=== PATIENT | male | born 1935 | race Hispanic/Latino ===

== ENCOUNTER 2021-03-21 10:28 | Inpatient (IN) | payer MEDICARE ==
[2021-03-21] MEDS ORDERED: SODIUM CHLORIDE 0.9% 1000 ML 1,000 ML IV ONE (11:23)
[2021-03-21] MEDS ORDERED: LORazepam 2 MG/ML VIAL IV ONE (11:23)
--- NOTE | 2021-03-21 11:27 | Emergency Department Report ---
HPI - General Time Seen by Provider: 03/21/21 11:17 - HPI HPI: This is an 86-year-old male who presents to the emergency department via EMS from home with complaint of altered mental status. Patient's called for EMS and told EMS that he has been having progressively worsening confusion over the past few days. Patient is currently AAO x1 to person, but not place or time. The patient is confused and pulling off his monitoring leads and attempting to pull out his IV. He is a poor historian secondary to his current condition. He has a past medical history of hypertension and diabetes. He was not given anything for his symptoms prior to presentation. Apparently the patient had slightly decreased oxygen with EMS at 93% and was placed on 2 L oxygen via nasal cannula. ED Past Medical Hx - Past Medical History Hx Hypertension: Yes Hx Diabetes: Yes Additional medical history: Coronary artery disease - Surgical History Hx Coronary Stent: Yes (approximately 2013) Hx Open Heart Surgery: Yes (CABG 2007) - Social History Smoking Status: Never Smoker - Medications Home Medications: Home Medications Medication Instructions Recorded Confirmed Last Taken Type Clopidogrel [Plavix] 75 mg PO QDAY 06/13/16 06/13/16 Unknown History Glimepiride [Amaryl] 1 mg PO QDAY 06/13/16 06/13/16 Unknown History amLODIPine 5 mg PO QDAY 06/13/16 06/13/16 Unknown History lisinopriL [Zestril TAB] 40 mg PO QDAY 06/13/16 06/13/16 Unknown History metFORMIN [Glucophage] 500 mg PO BID 06/13/16 06/13/16 Unknown History Aspirin EC [Halfprin EC] 81 mg PO QDAY #30 tablet. 06/14/16 Unknown Rx Atorvastatin Calcium [Lipitor] 20 mg PO QHS #30 tab 06/14/16 Unknown Rx Insulin Glargine [Lantus VIAL] 20 units SUB-Q QHS units 06/14/16 Unknown Rx carvediloL [Coreg] 3.125 mg PO BID #60 tablet 06/14/16 Unknown Rx ED Review of Systems ROS: Stated complaint: ALTERED MENTAL STATUS Other details as noted in HPI Comment: Unobtainable due to pts medical conditions Physical Exam - Physical Exam Physical Exam: GENERAL: The patient is ill-appearing and confused. HENT: Normocephalic. Atraumatic. Patient has moist mucous membranes. EYES: Extraocular motions are intact. NECK: Supple. Trachea is midline. CHEST/LUNGS: Clear to auscultation. There is no respiratory distress noted. HEART/CARDIOVASCULAR: Regular. There is no tachycardia. There is no murmur. ABDOMEN: Abdomen is soft, nontender. Patient has normal bowel sounds. There is no abdominal distention. SKIN: Skin is warm and dry. NEURO: The patient is awake but confused. AAO x1 to name only. Not following commands. Not redirectable. MUSCULOSKELETAL: There is no tenderness or deformity. ED Medical Decision Making - Lab Data Result diagrams: 03/21/21 13:33 03/21/21 13:33 Lab Results 03/21/21 03/21/21 03/21/21 Range/Units 13:33 13:33 13:33 WBC 7.5 (4.5-11.0) K/mm3 RBC 4.19 (3.65-5.03) M/mm3 Hgb 14.3 (11.8-15.2) gm/dl Hct 41.2 (35.5-45.6) % MCV 98 H (84-94) fl MCH 34 H (28-32) pg MCHC 35 H (32-34) % RDW 13.1 L (13.2-15.2) % Plt Count 210 (140-440) K/mm3 Lymph % (Auto) 15.8 (13.4-35.0) % [place] % (Auto) 10.9 H (0.0-7.3) % Eos % (Auto) 0.4 (0.0-4.3) % Baso % (Auto) 0.2 (0.0-1.8) % Lymph # (Auto) 1.2 (1.2-5.4) K/mm3 [place] # (Auto) 0.8 (0.0-0.8) K/mm3 Eos # (Auto) 0.0 (0.0-0.4) K/mm3 Baso # (Auto) 0.0 (0.0-0.1) K/mm3 Seg Neutrophils % 72.7 H (40.0-70.0) % Seg Neutrophils # 5.5 (1.8-7.7) K/mm3 Sodium 139 (137-145) mmol/L Potassium 3.7 (3.6-5.0) mmol/L Chloride 106.1 (98-107) mmol/L Carbon Dioxide 24 (22-30) mmol/L Anion Gap 13 mmol/L BUN 18 (9-20) mg/dL Creatinine 0.8 (0.8-1.3) mg/dL Estimated GFR > 60 ml/min BUN/Creatinine Ratio 23 % Glucose 197 H (75-100) mg/dL Lactic Acid 1.50 (0.7-2.0) mmol/L Calcium 8.2 L (8.4-10.2) mg/dL Total Bilirubin 0.40 (0.1-1.2) mg/dL AST 15 (5-40) units/L ALT 18 (7-56) units/L Alkaline Phosphatase 63 (35-129) units/L Ammonia (25-60) umol/L Total Creatine Kinase 73 (55-170) units/L Troponin T < 0.010 (0.00-0.029) ng/mL Total Protein 6.0 L (6.3-8.2) g/dL Albumin 3.8 L (3.9-5) g/dL Albumin/Globulin Ratio 1.7 % TSH (0.270-4.200) mlU/mL Urine Color (Yellow) Urine Turbidity (Clear) Urine pH (5.0-7.0) Ur Specific Alpha (1.003-1.030) Urine Protein (Negative) mg/dL Urine Glucose (UA) (Negative) mg/dL Urine Ketones (Negative) mg/dL Urine Blood (Negative) Urine Nitrite (Negative) Urine Bilirubin (Negative) Urine Urobilinogen (<2.0) mg/dL Ur Leukocyte Esterase (Negative) Urine WBC (Auto) (0.0-6.0) /HPF Urine RBC (Auto) (0.0-6.0) /HPF U Epithel Cells (Auto) (0-13.0) /HPF Plasma/Serum Alcohol (0-0.07) % 03/21/21 03/21/21 03/21/21 Range/Units 13:33 13:33 13:33 WBC (4.5-11.0) K/mm3 RBC (3.65-5.03) M/mm3 Hgb (11.8-15.2) gm/dl Hct (35.5-45.6) % MCV (84-94) fl MCH (28-32) pg MCHC (32-34) % RDW (13.2-15.2) % Plt Count (140-440) K/mm3 Lymph % (Auto) (13.4-35.0) % [place] % (Auto) (0.0-7.3) % Eos % (Auto) (0.0-4.3) % Baso % (Auto) (0.0-1.8) % Lymph # (Auto) (1.2-5.4) K/mm3 [place] # (Auto) (0.0-0.8) K/mm3 Eos # (Auto) (0.0-0.4) K/mm3 Baso # (Auto) (0.0-0.1) K/mm3 Seg Neutrophils % (40.0-70.0) % Seg Neutrophils # (1.8-7.7) K/mm3 Sodium (137-145) mmol/L Potassium (3.6-5.0) mmol/L Chloride (98-107) mmol/L Carbon Dioxide (22-30) mmol/L Anion Gap mmol/L BUN (9-20) mg/dL Creatinine (0.8-1.3) mg/dL Estimated GFR ml/min BUN/Creatinine Ratio % Glucose (75-100) mg/dL Lactic Acid (0.7-2.0) mmol/L Calcium (8.4-10.2) mg/dL Total Bilirubin (0.1-1.2) mg/dL AST (5-40) units/L ALT (7-56) units/L Alkaline Phosphatase (35-129) units/L Ammonia 33.0 (25-60) umol/L Total Creatine Kinase (55-170) units/L Troponin T (0.00-0.029) ng/mL Total Protein (6.3-8.2) g/dL Albumin (3.9-5) g/dL Albumin/Globulin Ratio % TSH 2.140 (0.270-4.200) mlU/mL Urine Color (Yellow) Urine Turbidity (Clear) Urine pH (5.0-7.0) Ur Specific Alpha (1.003-1.030) Urine Protein (Negative) mg/dL Urine Glucose (UA) (Negative) mg/dL Urine Ketones (Negative) mg/dL Urine Blood (Negative) Urine Nitrite (Negative) Urine Bilirubin (Negative) Urine Urobilinogen (<2.0) mg/dL Ur Leukocyte Esterase (Negative) Urine WBC (Auto) (0.0-6.0) /HPF Urine RBC (Auto) (0.0-6.0) /HPF U Epithel Cells (Auto) (0-13.0) /HPF Plasma/Serum Alcohol < 0.01 (0-0.07) % 03/21/21 Range/Units 13:51 WBC (4.5-11.0) K/mm3 RBC (3.65-5.03) M/mm3 Hgb (11.8-15.2) gm/dl Hct (35.5-45.6) % MCV (84-94) fl MCH (28-32) pg MCHC (32-34) % RDW (13.2-15.2) % Plt Count (140-440) K/mm3 Lymph % (Auto) (13.4-35.0) % [place] % (Auto) (0.0-7.3) % Eos % (Auto) (0.0-4.3) % Baso % (Auto) (0.0-1.8) % Lymph # (Auto) (1.2-5.4) K/mm3 [place] # (Auto) (0.0-0.8) K/mm3 Eos # (Auto) (0.0-0.4) K/mm3 Baso # (Auto) (0.0-0.1) K/mm3 Seg Neutrophils % (40.0-70.0) % Seg Neutrophils # (1.8-7.7) K/mm3 Sodium (137-145) mmol/L Potassium (3.6-5.0) mmol/L Chloride (98-107) mmol/L Carbon Dioxide (22-30) mmol/L Anion Gap mmol/L BUN (9-20) mg/dL Creatinine (0.8-1.3) mg/dL Estimated GFR ml/min BUN/Creatinine Ratio % Glucose (75-100) mg/dL Lactic Acid (0.7-2.0) mmol/L Calcium (8.4-10.2) mg/dL Total Bilirubin (0.1-1.2) mg/dL AST (5-40) units/L ALT (7-56) units/L Alkaline Phosphatase (35-129) units/L Ammonia (25-60) umol/L Total Creatine Kinase (55-170) units/L Troponin T (0.00-0.029) ng/mL Total Protein (6.3-8.2) g/dL Albumin (3.9-5) g/dL Albumin/Globulin Ratio % TSH (0.270-4.200) mlU/mL Urine Color Straw (Yellow) Urine Turbidity Clear (Clear) Urine pH 7.0 (5.0-7.0) Ur Specific Alpha 1.011 (1.003-1.030) Urine Protein <15 mg/dl (Negative) mg/dL Urine Glucose (UA) >=500 (Negative) mg/dL Urine Ketones Neg (Negative) mg/dL Urine Blood Neg (Negative) Urine Nitrite Neg (Negative) Urine Bilirubin Neg (Negative) Urine Urobilinogen < 2.0 (<2.0) mg/dL Ur Leukocyte Esterase Neg (Negative) Urine WBC (Auto) 1.0 (0.0-6.0) /HPF Urine RBC (Auto) 2.0 (0.0-6.0) /HPF U Epithel Cells (Auto) < 1.0 (0-13.0) /HPF Plasma/Serum Alcohol (0-0.07) % - Radiology Data Radiology results: report reviewed CT HEAD WITHOUT CONTRAST INDICATION / CLINICAL INFORMATION: Altered mental status. TECHNIQUE: All CT scans at this location are performed using CT dose reduction for ALARA by means of automated exposure control. COMPARISON: None available. FINDINGS: HEMORRHAGE: No evidence of intracranial hemorrhage or extra-axial fluid collection. EXTRA-AXIAL SPACES: Cortical sulci and sylvian fissures are enlarged reflecting a degree of parenchymal volume loss which is pr ominent even given the patient's age 88 years. Basilar cisterns have an unremarkable appearance. VENTRICULAR SYSTEM: The third and lateral ventricles are enlarged out of proportion to the cortical sulci. This probably reflects the presence of central greater than cortical atrophy. CEREBRAL PARENCHYMA: Periventricular and deep white matter lucency is observed. This is probably secondary to microvascular ischemic change. There is no indication of recent infarction. No areas of encephalomalacia are identified. MIDLINE SHIFT OR HERNIATION: There is no mass effect. CEREBELLUM / BRAINSTEM: Brainstem and cerebellum have an unremarkable appearance. MIDLINE STRUCTURES:No abnormalities of the pituitary gland or pineal region are observed INTRACRANIAL VESSELS:Calcified atherosclerotic plaque is present along the course of the cavernous segments of both internal carotid arteries. Similar findings are seen at the distal vertebral arteries. ORBITS: Status post bilateral cataract surgery. No additional abnormality. SOFT TISSUES of HEAD: No significant abnormality. CALVARIUM: Evaluation of bone windows reveals no abnormalities. PARANASAL SINUSES / MASTOID AIR CELLS: Paranasal sinuses are free from inflammatory mucosal disease. Mastoid air cells are normally pneumatized. ADDITIONAL FINDINGS: None. IMPRESSION: 1. Moderate central greater than cortical atrophy. Moderate microvascular ischemic change. 2. No acute intracranial abnormality. - Medical Decision Making This patient presents to the emergency department for evaluation of altered mental status. Apparently the patient has had some cognitive decline over the past few days and was sent in by his for evaluation. No previous diagnosis of dementia. CT scan head does not show any hemorrhage, large vessel occlusion, hydrocephalus, or any other acute process. There is significant atrophy. The patient's labs have been mostly unremarkable including CBC, metabolic panel, urinalysis, ammonia level, normal thyroid function, and does not show any etiology of the patient's altered mental status. Patient's vital signs have been reassuring throughout his ED course thus far. He will be admitted to the hospital for further evaluation and treatment and has been accepted for admission by the hospitalist, Dr. Polk. Critical Care Time: No Critical care attestation.: If time is entered above; I have spent that time in minutes in the direct care of this critically ill patient, excluding procedure time. ED Disposition Clinical Impression: Altered mental status, Encephalopathy Hypertension Qualifiers: Hypertension type: essential hypertension Qualified Code(s): I10 - Essential (primary) hypertension Disposition: OP ADMIT IP TO THIS HOSP Is pt being admited?: Yes Condition: Serious Time of Disposition: 18:38
[2021-03-21 14:09] LABS: Basophils % (Auto) 0.2 % (0.0-1.8); Eosinophils % (Auto) 0.4 % (0.0-4.3); Hematocrit 41.2 % (35.5-45.6); Hemoglobin 14.3 gm/dl (11.8-15.2); Lymphocytes # (Auto) 1.2 K/mm3 (1.2-5.4); Lymphocytes % (Auto) 15.8 % (13.4-35.0); Mean Corpuscular HGB Conc 35 % (32-34); Mean Corpuscular Volume 98 fl (84-94); Monocytes # (Auto) 0.8 K/mm3 (0.0-0.8); Monocytes % (Auto) 10.9 % (0.0-7.3); Platelet Count 210 K/mm3 (140-440); Red Blood Count 4.19 M/mm3 (3.65-5.03); Red Cell Distribution Width 13.1 % (13.2-15.2)
[2021-03-21 14:37] LABS: Alanine Aminotransferase 18 units/L (7-56); Albumin 3.8 g/dL (3.9-5); BUN/Creatinine Ratio 23; Blood Urea Nitrogen 18 mg/dL (9-20); Calcium 8.2 mg/dL (8.4-10.2); Hemolysis Index 12
[2021-03-21 14:48] LABS: Bilirubin,Urine NEG (Negative); Blood,Urine NEG (Negative); Color,Urine Straw (Yellow); Protein,Urine <15 mg/dL mg/dL (Negative); Urobilinogen,Urine < 2.0 mg/dL (<2.0)
--- NOTE | 2021-03-21 15:18 | History and Physical Report ---
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 Patient has diminished cognition and is unable to provide detailed history. Patient history taken from EMS staff, ED staff, as well as patient who was made available with telephone for interview. Patient reports "he cannot do anything for himself anymore". Patient states that the patient has experienced increased confusion, diminished oral intake, as well as increased difficulty recognizing family me mbers over the past 3 weeks with worsening symptoms over the same timeframe. Patient is currently bedbound, nonambulatory and requires 6/6 assistance with activities of daily living. Patient has palliative performance score 30%. EMS notified and upon arrival the patient was found to be in distress and subsequently transported to [facility] for further care and evaluation of the aforementioned symptoms. The patient was seen and evaluated in the emergency department. All lab and imaging studies reviewed. Patient found to have volume depletion, metabolic encephalopathy, debility. Patient placed in observation status and admitted to medical floor due to increased risk of worsening symptoms. Patient treated with IV fluid resuscitation therapy. Patient has diminished cognition but has a positive gag reflex and is able to protect his airway without difficulty. Advanced care planning conducted in ED. No reports of fever, chills, chest pain, palpitation productive cough, skin rash, recent c ontact, or known exposure to COVID-19. No prior admission for review. All medication listed at the time of the patient's admission has been reconciled. Past History Past Medical History: CAD, diabetes, hypertension, hyperlipidemia Past Surgical History: CABG Social history: , lives with family. denies: smoking, alcohol abuse, prescription drug abuse Family history: diabetes, hypertension Medications and Allergies Allergies Allergy/AdvReac Type Severity Reaction Status Date / Time No Known Allergies Allergy Verified 06/13/16 02:18 Home Medications Medication Instructions Recorded Confirmed Last Taken Type Clopidogrel [Plavix] 75 mg PO QDAY 06/13/16 06/13/16 Unknown History Glimepiride [Amaryl] 1 mg PO QDAY 06/13/16 06/13/16 Unknown History lisinopriL [Zestril TAB] 40 mg PO QDAY 06/13/16 06/13/16 Unknown History metFORMIN [Glucophage] 500 mg PO BID 06/13/16 06/13/16 Unknown History Aspirin EC [Halfprin EC] 81 mg PO QDAY #30 tablet. 06/14/16 Unknown Rx Atorvastatin Calcium [Lipitor] 20 mg PO QHS #30 tab 06/14/16 Unknown Rx Insulin Glargine [Lantus VIAL] 20 units SUB-Q QHS units 06/14/16 Unknown Rx Active Meds: Active Medications Sodium Chloride (Nacl 0.9% 1000 Ml) 1,000 mls @ 125 mls/hr IV ONCE ONE Stop: 03/21/21 19:22 Last Admin: 03/21/21 12:00 Dose: 125 mls/hr Documented by: Review of Systems ROS unobtainable: due to mental status Exam - Constitutional Vitals: Temp Pulse Resp BP Pulse Ox 98.5 F 72 19 139/79 96 03/21/21 11:06 03/21/21 14:30 03/21/21 14:30 03/21/21 14:30 03/21/21 14:30 General appearance: Present: mild distress - EENT Eyes: Present: PERRL ENT: hearing intact, clear oral mucosa, other (Oral mucosa dry) - Neck Neck: Present: supple, normal ROM - Respiratory Respiratory effort: normal Respiratory: bilateral: CTA - Cardiovascular Heart Sounds: Present: S1 & S2. Absent: rub, click - Extremities Extremities: pulses symmetrical, No edema Peripheral Pulses: within normal limits - Abdominal General gastrointestinal: Present: soft, non-tender, non-distended, normal bowel sounds Male genitourinary: Present: normal - Integumentary Integumentary: Present: clear, warm, dry - Musculoskeletal Musculoskeletal: gait normal, strength equal bilaterally - Psychiatric Psychiatric: no appropriate mood/affect, no intact judgment & insight, no memory intact - Neurologic Neurologic: CNII-XII intact, no focal deficits, moves all extremities, no gait normal HEART Score - HEART Score Troponin: Troponin T < 0.010 ng/mL (0.00-0.029) 03/21/21 13:33 Results - Labs CBC & Chem 7: 03/28/21 05:59 03/29/21 07:07 Labs: Abnormal lab results 03/21/21 03/21/21 Range/Units 13:33 13:33 MCV 98 H (84-94) fl MCH 34 H (28-32) pg MCHC 35 H (32-34) % RDW 13.1 L (13.2-15.2) % [place] % (Auto) 10.9 H (0.0-7.3) % Seg Neutrophils % 72.7 H (40.0-70.0) % Glucose 197 H (75-100) mg/dL Calcium 8.2 L (8.4-10.2) mg/dL Total Protein 6.0 L (6.3-8.2) g/dL Albumin 3.8 L (3.9-5) g/dL Assessment and Plan - Patient Problems (1) Volume depletion Status: Acute Plan to address problem: IV fluid resuscitation therapy, monitor urine output every shift, (2) Metabolic encephalopathy Status: Acute Plan to address problem: CT head, neuro check, seizure precautions, fall precautions. (3) Hypertension Status: Acute Qualifiers: Hypertension type: essential hypertension Plan to address problem: Monitor blood pressure every shift. Patient has relative hypotension. Goal systolic blood pressure around 150 overnight. (4) Diabetes Status: Acute Plan to address problem: Consistent carbohydrate diet, sliding scale insulin therapy, Accu-Chek, hypoglycemia protocol. (5) Vascular dementia Status: Acute Qualifiers: Dementia behavioral disturbance: without behavioral disturbance Qualified Code(s): F01.50 - Vascular dementia without behavioral disturbance Plan to address problem: Verbal prompting, verbal redirection, benzodiazepine therapy as clinical indicated (6) Cerebral atherosclerosis Status: Acute Plan to address problem: Antiplatelet therapy, supportive care, risk factor reduction. (7) DVT prophylaxis Status: Acute Plan to address problem: SCDs bilateral lower extremities while in bed, (8) Advance care planning Status: Acute Plan to address problem: Disease education conducted, diagnosis discussed, prognosis discussed, patient is full code, patient knowledges understanding and agreement with care plan, +30 minutes. Carolina Hernandez .
[2021-03-21] MEDS ORDERED: ACETAMINOPHEN 325 MG TAB PO PRN (15:38)
[2021-03-21] MEDS ORDERED: ALBUTEROL 2.5 MG/3 ML NEBU IH PRN (15:38)
[2021-03-21] MEDS ORDERED: DEXTROSE 50% IN WATER (25GM) 50 ML SYRINGE IV PRN (15:45)
[2021-03-21] MEDS: SODIUM CHLORIDE 0.9% 1000 ML 1,000 ML IV SCH (20:49)
[2021-03-21] MEDS: INSULIN REGULAR, HUMAN 100 UNITS/1 ML SUB-Q SCH (23:39)
[2021-03-22 06:24] LABS: BUN/Creatinine Ratio 18; Blood Urea Nitrogen 14 mg/dL (9-20); Calcium 9.5 mg/dL (8.4-10.2); Hemolysis Index 10
[2021-03-22] MEDS: INSULIN REGULAR, HUMAN 100 UNITS/1 ML SUB-Q SCH ×4 (08:25→23:15)
--- NOTE | 2021-03-22 11:17 | Electrocardiograph Report ---
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
[2021-03-22] MEDS: LISINOPRIL 10 MG TAB PO SCH (11:37)
[2021-03-22] MEDS: CLOPIDOGREL 75 MG TAB PO SCH (11:37)
[2021-03-22] MEDS: ASPIRIN EC 81 MG TAB PO SCH (11:37)
--- NOTE | 2021-03-22 12:51 | Progress Note ---
Assessment and Plan (1) Volume depletion Current Visit: Yes Status: Acute Plan to address problem: IV fluid resuscitation therapy, monitor urine output every shift, (2) Metabolic encephalopathy Current Visit: Yes Status: Acute Plan to address problem: CT head, neuro check, seizure precautions, fall precautions. (3) Hypertension Current Visit: Yes Status: Acute Qualifiers: Hypertension type: essential hypertension Qualified Code(s): I10 - E ssential (primary) hypertension Plan to address problem: Monitor blood pressure every shift. Patient has relative hypotension. Goal systolic blood pressure around 150 overnight. (4) Diabetes Current Visit: Yes Status: Acute Plan to address problem: Consistent carbohydrate diet, sliding scale insulin therapy, Accu-Chek, hypoglycemia protocol. (5) Vascular dementia Current Visit: Yes Status: Acute Qualifiers: Dementia behavioral disturbance: without behavioral disturbance Qualified Code(s): F01.50 - Vascular dementia without behavioral disturbance Plan to address problem: Verbal prompting, verbal redirection, benzodiazepine therapy as clinical indicated (6) Cerebral atherosclerosis Current Visit: Yes Status: Acute Plan to address problem: Antiplatelet therapy, supportive care, risk factor reduction. (7) DVT prophylaxis Current Visit: Yes Status: Acute Plan to address problem: SCDs bilateral lower extremities while in bed, (8) Advance care planning Current Visit: Yes Status: Acute Plan to address problem: Disease education conducted, diagnosis discussed, prognosis discussed, patient is full code, patient knowledges understanding and agreement with care plan, +30 minutes. Carolina Hernandez . Daily clinical course: 03/22/21: Patient being restless, will place on soft mitten restraint. Continue gentle IV fluid hydration, advance diet as tolerated. May discuss with family about hospice/comfort care. Subjective Date of service: 03/22/21 Interval history: Patient seen and examined. Medical records and medication list reviewed. No acute event overnight noted by the RN. Patient remains confused Discussed plan of care at bedside with patient's RN. Objective - Exam Narrative Exam: General appearance: Present: no acute distress - EENT Eyes: PERRL, EOM intact ENT: hearing intact - Neck Neck: supple, normal ROM, no masses or JVD - Respiratory Respiratory effort: normal Respiratory: bilateral: CTA, diminished - Cardiovascular Rhythm: regular Heart Sounds: Present: S1 & S2 Extremities: No edema - Gastrointestinal General gastrointestinal: Present: soft, non-tender Rectal Exam: deferred - Genitourinary Male genitourinary: deferred - Integumentary Integumentary: clear - Neurologic Neurologic: moves all extremities - Psychiatric Psychiatric: other (Poor memory, confused) - Constitutional Vitals: Vital Signs - 12hr 03/22/21 03/22/21 11:37 11:58 Temperature 98.0 F Pulse Rate 82 91 H Respiratory 18 Rate Blood Pressure 153/94 O2 Sat by Pulse 100 Oximetry - Labs CBC & Chem 7: 03/28/21 05:59 03/29/21 07:07 Labs: Abnormal lab results 03/21/21 03/21/21 03/21/21 Range/Units 13:33 13:33 21:41 MCV 98 H (84-94) fl MCH 34 H (28-32) pg MCHC 35 H (32-34) % RDW 13.1 L (13.2-15.2) % [place] % (Auto) 10.9 H (0.0-7.3) % Seg Neutrophils % 72.7 H (40.0-70.0) % Glucose 197 H (75-100) mg/dL POC Glucose 134 H (70-105) mg/dL Calcium 8.2 L (8.4-10.2) mg/dL Total Protein 6.0 L (6.3-8.2) g/dL Albumin 3.8 L (3.9-5) g/dL 03/22/21 03/22/21 03/22/21 Range/Units 05:35 07:49 11:50 MCV (84-94) fl MCH (28-32) pg MCHC (32-34) % RDW (13.2-15.2) % [place] % (Auto) (0.0-7.3) % Seg Neutrophils % (40.0-70.0) % Glucose 209 H (75-100) mg/dL POC Glucose 239 H 182 H (70-105) mg/dL Calcium (8.4-10.2) mg/dL Total Protein (6.3-8.2) g/dL Albumin (3.9-5) g/dL HEART Score - HEART Score Troponin: Troponin T < 0.010 ng/mL (0.00-0.029) 03/21/21 13:33
[2021-03-22] MEDS: SODIUM CHLORIDE 0.9% 1000 ML 1,000 ML IV SCH (20:37)
[2021-03-23] MEDS: INSULIN REGULAR, HUMAN 100 UNITS/1 ML SUB-Q SCH ×4 (07:30→21:40)
[2021-03-23] MEDS: LISINOPRIL 10 MG TAB PO SCH (09:09)
[2021-03-23] MEDS: CLOPIDOGREL 75 MG TAB PO SCH (09:09)
[2021-03-23] MEDS: ASPIRIN EC 81 MG TAB PO SCH (09:09)
--- NOTE | 2021-03-23 15:18 | Progress Note ---
Assessment and Plan (1) Volume depletion Current Visit: Yes Status: Acute Plan to address problem: IV fluid resuscitation therapy, monitor urine output every shift, (2) Metabolic encephalopathy Current Visit: Yes Status: Acute Plan to address problem: CT head, neuro check, seizure precautions, fall precautions. (3) Hypertension Current Visit: Yes Status: Acute Qualifiers: Hypertension type: essential hypertension Qualified Code(s): I10 - E ssential (primary) hypertension Plan to address problem: Monitor blood pressure every shift. Patient has relative hypotension. Goal systolic blood pressure around 150 overnight. (4) Diabetes Current Visit: Yes Status: Acute Plan to address problem: Consistent carbohydrate diet, sliding scale insulin therapy, Accu-Chek, hypoglycemia protocol. (5) Vascular dementia Current Visit: Yes Status: Acute Qualifiers: Dementia behavioral disturbance: without behavioral disturbance Qualified Code(s): F01.50 - Vascular dementia without behavioral disturbance Plan to address problem: Verbal prompting, verbal redirection, benzodiazepine therapy as clinical indicated (6) Cerebral atherosclerosis Current Visit: Yes Status: Acute Plan to address problem: Antiplatelet therapy, supportive care, risk factor reduction. (7) DVT prophylaxis Current Visit: Yes Status: Acute Plan to address problem: SCDs bilateral lower extremities while in bed, --Full CODE STATUS patient knowledges understanding and agreement with care plan, +30 minutes. Carolina Hernandez . Daily clinical course: 03/22/21: Patient being restless, will place on soft mitten restraint. Continue gentle IV fluid hydration, advance diet as tolerated. May discuss with family about hospice/comfort care. 03/23/21: Patient is not appropriate for hospice. Patient was requesting for SNF placement as she is unable to take care of patient. field care manager working on placement. Patient very confused due to underlying dementia and wants to get out from the bed. Restraint order placed with mittens for safety. Subjective Date of service: 03/23/21 Interval history: Patient seen and examined. Medical records and medication list reviewed. No acute event overnight noted by the RN. Patient remains confused Discussed plan of care at bedside with patient's RN. Objective - Exam Narrative Exam: General appearance: Present: no acute distress - EENT Eyes: PERRL, EOM intact ENT: hearing intact - Neck Neck: supple, normal ROM, no masses or JVD - Respiratory Respiratory effort: normal Respiratory: bilateral: CTA, diminished - Cardiovascular Rhythm: regular Heart Sounds: Present: S1 & S2 Extremities: No edema - Gastrointestinal General gastrointestinal: Present: soft, non-tender Rectal Exam: deferred - Genitourinary Male genitourinary: deferred - Integumentary Integumentary: clear - Neurologic Neurologic: moves all extremities - Psychiatric Psychiatric: other (Poor memory, confused) - Constitutional Vitals: Vital Signs - 12hr 03/23/21 03/23/21 03/23/21 04:14 04:15 10:11 Temperature 98.4 F Pulse Rate 62 Respiratory 18 Rate Blood Pressure 121/76 121/76 Blood Pressure [Right] O2 Sat by Pulse 91 98 Oximetry 03/23/21 12:30 Temperature 98.2 F Pulse Rate 91 H Respiratory 16 Rate Blood Pressure Blood Pressure 152/78 [Right] O2 Sat by Pulse 95 Oximetry - Labs CBC & Chem 7: 03/28/21 05:59 03/29/21 07:07 Labs: Abnormal lab results 03/22/21 03/22/21 03/23/21 Range/Units 15:58 21:29 07:47 POC Glucose 188 H 174 H 215 H (70-105) mg/dL 03/23/21 Range/Units 12:27 POC Glucose 244 H (70-105) mg/dL HEART Score - HEART Score Troponin: Troponin T < 0.010 ng/mL (0.00-0.029) 03/21/21 13:33
[2021-03-23] MEDS: SODIUM CHLORIDE 0.9% 1000 ML 1,000 ML IV SCH (18:20)
[2021-03-23] MEDS: ONDANSETRON 4 MG/2 ML INJ IV PRN (18:42)
[2021-03-24] MEDS: INSULIN REGULAR, HUMAN 100 UNITS/1 ML SUB-Q SCH ×4 (07:30→22:47)
[2021-03-24] MEDS: LISINOPRIL 10 MG TAB PO SCH (08:45)
[2021-03-24] MEDS: CLOPIDOGREL 75 MG TAB PO SCH (08:46)
[2021-03-24] MEDS: ASPIRIN EC 81 MG TAB PO SCH (08:47)
[2021-03-24] MEDS ORDERED: GLIMEPIRIDE 2 MG TAB PO SCH (11:03)
--- NOTE | 2021-03-24 11:12 | Progress Note ---
Subjective Date of service: 03/24/21 Interval history: Assessment and plan Volume depletion Resolved Will discontinue IV fluids Stable for discharge to longterm facility Metabolic encephalopathy CT head, neuro check, seizure precautions, fall precautions. Patient is alert but confused, poor memory, oriented to name only but follows commands and denies any pain Suspect this is baseline exacerbated by volume depletion Hypertension Patient is normotensive Continue lisinopril 10 mg daily Patient was on lisinopril 40 mg and carvedilol prior to admission Type 2 diabetes Accu-Cheks reviewed Start on Metformin Continue insulin sliding scale coverage CAD/CABG Continue statin, aspirin and Plavix Hx of stroke Continue DAPT Dementia-vascular type Patient has arm restraints Alert and awake but confused/poor memory For longterm facility placement DVT prophylaxis SCDs bilateral lower extremities while in bed, --Full CODE STATUS patient knowledges understanding and agreement with care plan, +30 minutes. Carolina Hernandez . Daily clinical course: 03/22/21: Patient being restless, will place on soft mitten restraint. Continue gentle IV fluid hydration, advance diet as tolerated. May discuss with family about hospice/comfort care. 03/23/21: Patient is not appropriate for hospice. Patient was requesting for SNF placement as she is unable to take care of patient. bar manager working on placement. Patient very confused due to underlying dementia and wants to get out from the bed. Restraint order placed with mittens for safety. 03/24 patient is awake, alert, confused, poor memory. He is oriented to name only. Cannot tell his age. Denies pain. Denies chest pain or shortness of breath. Chart reviewed. Lab results and Accu-Cheks reviewed. Awaiting longterm home placement Objective - Constitutional Vitals: Vital Signs - 12hr 03/23/21 03/23/21 03/24/21 23:51 23:54 05:44 Temperature 97.6 F 97.6 F 97.9 F Pulse Rate 65 69 87 Respiratory 18 18 20 Rate Blood Pressure 149/65 154/103 Blood Pressure 149/65 [Right] O2 Sat by Pulse 92 93 91 Oximetry 03/24/21 03/24/21 03/24/21 06:16 08:29 08:45 Temperature Pulse Rate 69 78 Respiratory 18 Rate Blood Pressure 128/62 130/68 Blood Pressure [Right] O2 Sat by Pulse 93 97 Oximetry General appearance: Present: no acute distress - EENT Eyes: PERRL, EOM intact ENT: hearing intact - Neck Neck: supple, normal ROM, no masses or JVD - Respiratory Respiratory effort: normal Respiratory: bilateral: CTA, diminished - Cardiovascular Rhythm: regular Heart Sounds: Present: S1 & S2 Extremities: No edema - Gastrointestinal General gastrointestinal: Present: soft, non-tender Rectal Exam: deferred - Genitourinary Male genitourinary: deferred - Integumentary Integumentary: clear - Neurologic Neurologic: moves all extremities - Psychiatric Psychiatric: other (Poor memory, confused) - Labs CBC & Chem 7: 03/21/21 13:33 03/22/21 05:35 Labs: Abnormal lab results 03/23/21 03/23/21 03/23/21 Range/Units 12:27 16:28 21:17 POC Glucose 244 H 174 H 257 H (70-105) mg/dL 03/24/21 Range/Units 08:11 POC Glucose 221 H (70-105) mg/dL HEART Score - HEART Score Troponin: Troponin T < 0.010 ng/mL (0.00-0.029) 03/21/21 13:33
[2021-03-25] MEDS: INSULIN REGULAR, HUMAN 100 UNITS/1 ML SUB-Q SCH ×4 (08:11→22:59)
[2021-03-25] MEDS: ASPIRIN EC 81 MG TAB PO SCH ×2 (10:02→10:04)
[2021-03-25] MEDS: metFORMIN 500 MG TAB PO SCH ×2 (10:03→19:15)
[2021-03-25] MEDS: CLOPIDOGREL 75 MG TAB PO SCH ×2 (10:03→10:04)
[2021-03-25] MEDS: LISINOPRIL 10 MG TAB PO SCH (10:03)
--- NOTE | 2021-03-25 13:14 | Progress Note ---
Subjective Date of service: 03/25/21 Interval history: Assessment and plan Volume depletion Resolved off IV fluids Stable for discharge to alf facility Metabolic encephalopathy CT head, neuro check, seizure precautions, fall precautions. Patient is alert but confused, poor memory, oriented to name only but follows commands and denies any pain Suspect this is baseline exacerbated by volume depletion Hypertension Blood pressure is moderately high Increase lisinopril 20 mg daily Patient was on lisinopril 40 mg and carvedilol prior to admission Type 2 diabetes Accu-Cheks reviewed Continue Metformin Add glimepiride 1 mg daily Continue insulin sliding scale coverage CAD/CABG Continue statin, aspirin and Plavix Hx of stroke Continue DAPT Dementia-vascular type Patient has arm restraints Alert and awake but confused/poor memory For alf facility placement DVT prophylaxis SCDs bilateral lower extremities while in bed, --Full CODE STATUS patient knowledges understanding and agreement with care plan, +30 minutes. Carolina Hernandez . Daily clinical course: 03/22/21: Patient being restless, will place on soft mitten restraint. Continue gentle IV fluid hydration, advance diet as tolerated. May discuss with family about hospice/comfort care. 03/23/21: Patient is not appropriate for hospice. Patient was requesting for SNF placement as she is unable to take care of patient. [employer] senior manager working on placement. Patient very confused due to underlying dementia and wants to get out from the bed. Restraint order placed with mittens for safety. 03/24 patient is awake, alert, confused, poor memory. He is oriented to name only. Cannot tell his age. Denies pain. Denies chest pain or shortness of breath. Chart reviewed. Lab results and Accu-Cheks reviewed. Awaiting alf home placement 03/25 patient has mittens and wrist restraints, alert and offers no specific complaints and not in any acute distress, Objective - Constitutional Vitals: Vital Signs - 12hr 03/25/21 03/25/21 03:21 11:35 Temperature 98.6 F 98.6 F Pulse Rate 89 86 Respiratory 18 22 Rate Blood Pressure 165/82 140/77 O2 Sat by Pulse 95 98 Oximetry General appearance: Present: no acute distress - EENT Eyes: PERRL, EOM intact ENT: hearing intact, clear oral mucosa - Neck Neck: supple, normal ROM - Respiratory Respiratory effort: normal Respiratory: bilateral: CTA, diminished - Cardiovascular Rhythm: regular Heart Sounds: Present: S1 & S2 Extremities: No edema - Gastrointestinal General gastrointestinal: Present: soft, non-tender - Integumentary Integumentary: clear - Neurologic Neurologic: moves all extremities - Labs CBC & Chem 7: 03/21/21 13:33 03/22/21 05:35 Labs: Abnormal lab results 03/24/21 03/24/21 03/25/21 Range/Units 16:24 22:39 07:49 POC Glucose 119 H 244 H 241 H (70-105) mg/dL 03/25/21 Range/Units 11:30 POC Glucose 384 H (70-105) mg/dL HEART Score - HEART Score Troponin: Troponin T < 0.010 ng/mL (0.00-0.029) 03/21/21 13:33
[2021-03-26] MEDS ORDERED: GLIMEPIRIDE 2 MG TAB PO SCH (08:00)
[2021-03-26] MEDS: INSULIN REGULAR, HUMAN 100 UNITS/1 ML SUB-Q SCH ×4 (08:37→23:09)
[2021-03-26] MEDS: metFORMIN 500 MG TAB PO SCH ×2 (08:37→17:29)
[2021-03-26] MEDS: LISINOPRIL 10 MG TAB PO SCH (09:02)
[2021-03-26] MEDS: CLOPIDOGREL 75 MG TAB PO SCH (09:02)
[2021-03-26] MEDS: ASPIRIN EC 81 MG TAB PO SCH (09:02)
--- NOTE | 2021-03-26 09:54 | Progress Note ---
Subjective Date of service: 03/26/21 Interval history: Assessment and plan Volume depletion Resolved off IV fluids Stable for discharge to snf facility Metabolic encephalopathy CT head, neuro check, seizure precautions, fall precautions. Patient is alert but confused, poor memory, oriented to name only but follows commands and denies any pain Suspect this is baseline exacerbated by volume depletion Hypertension cont. lisinopril 20 mg daily Patient was on lisinopril 40 mg and carvedilol prior to admission Type 2 diabetes Accu-Cheks reviewed Continue Metformin Increase glimepiride 2 mg daily Continue insulin sliding scale coverage CAD/CABG Continue statin, aspirin and Plavix Hx of stroke Continue DAPT Dementia-vascular type Patient has arm restraints Alert and awake but confused/poor memory For snf facility placement DVT prophylaxis SCDs bilateral lower extremities while in bed, --Full CODE STATUS patient knowledges understanding and agreement with care plan, +30 minutes. Carolina Hernandez . Daily clinical course: 03/22/21: Patient being restless, will place on soft mitten restraint. Continue gentle IV fluid hydration, advance diet as tolerated. May discuss with family about hospice/comfort care. 03/23/21: Patient is not appropriate for hospice. Patient was requesting for SNF placement as she is unable to take care of patient. medical staff services manager working on placement. Patient very confused due to underlying dementia and wants to get out from the bed. Restraint order placed with mittens for safety. 03/24 patient is awake, alert, confused, poor memory. He is oriented to name only. Cannot tell his age. Denies pain. Denies chest pain or shortness of breath. Chart reviewed. Lab results and Accu-Cheks reviewed. Awaiting snf home placement 03/25 patient has mittens and wrist restraints, alert and offers no specific complaints and not in any acute distress, 03/26 no acute events overnight and patient is awake and alert but moderately confused and with poor memory, waiting for placement Objective - Constitutional Vitals: Vital Signs - 12hr 03/25/21 03/26/21 03/26/21 22:30 04:39 09:02 Temperature 98.2 F 98.3 F Pulse Rate 75 48 L Respiratory 18 20 Rate Blood Pressure 138/70 168/68 168/68 O2 Sat by Pulse 93 98 Oximetry General appearance: Present: no acute distress - EENT Eyes: PERRL, EOM intact ENT: hearing intact, clear oral mucosa - Neck Neck: supple, normal ROM - Respiratory Respiratory effort: normal Respiratory: bilateral: CTA - Cardiovascular Rhythm: regular Heart Sounds: Present: S1 & S2 Extremities: No edema - Gastrointestinal General gastrointestinal: Present: soft, non-tender - Integumentary Integumentary: clear - Labs CBC & Chem 7: 03/21/21 13:33 03/22/21 05:35 Labs: Abnormal lab results 03/25/21 03/25/21 03/25/21 Range/Units 11:30 17:07 22:27 POC Glucose 384 H 262 H 261 H (70-105) mg/dL 03/26/21 Range/Units 07:30 POC Glucose 228 H (70-105) mg/dL HEART Score - HEART Score Troponin: Troponin T < 0.010 ng/mL (0.00-0.029) 03/21/21 13:33
[2021-03-26] MEDS: GLIMEPIRIDE 2 MG TAB PO SCH (13:36)
[2021-03-26] MEDS ORDERED: clonazePAM 0.5 MG TAB PO SCH (14:00)
[2021-03-26] MEDS: clonazePAM 0.5 MG TAB PO PRN (18:03)
[2021-03-27] MEDS: ONDANSETRON 4 MG/2 ML INJ IV PRN (00:46)
[2021-03-27 05:16] LABS: Hematocrit 45.9 % (35.5-45.6); Hemoglobin 15.3 gm/dl (11.8-15.2); Mean Corpuscular HGB Conc 33 % (32-34); Mean Corpuscular Volume 98 fl (84-94); Platelet Count 257 K/mm3 (140-440); Red Blood Count 4.69 M/mm3 (3.65-5.03)
[2021-03-27 05:31] LABS: BUN/Creatinine Ratio 38; Blood Urea Nitrogen 38 mg/dL (9-20); Calcium 8.7 mg/dL (8.4-10.2); Hemolysis Index 2
[2021-03-27] MEDS: CLOPIDOGREL 75 MG TAB PO SCH (09:47)
[2021-03-27] MEDS: metFORMIN 500 MG TAB PO SCH ×2 (09:47→17:19)
[2021-03-27] MEDS: GLIMEPIRIDE 2 MG TAB PO SCH (09:47)
[2021-03-27] MEDS: LISINOPRIL 10 MG TAB PO SCH (09:47)
[2021-03-27] MEDS: ASPIRIN EC 81 MG TAB PO SCH (09:47)
[2021-03-27] MEDS: INSULIN REGULAR, HUMAN 100 UNITS/1 ML SUB-Q SCH ×4 (10:05→21:13)
--- NOTE | 2021-03-27 10:59 | Progress Note ---
Subjective Date of service: 03/27/21 Interval history: Assessment and plan Volume depletion Resolved off IV fluids Stable for discharge to care home facility Acute encephalopathy likely metabolic neuro check, seizure precautions, fall precautions. Patient is alert but confused, poor memory, oriented to name only but follows commands and denies any pain Suspect this is baseline exacerbated by volume depletion Leukocytosis Lab results reviewed WBC count increased to 17.3 Patient is afebrile and no focus of infection identified Check UA and chest x-ray Repeat CBC in am Hypertension-fair cont. lisinopril 20 mg daily Patient was on lisinopril 40 mg and carvedilol prior to admission Type 2 diabetes Accu-Cheks reviewed Continue Metformin Continue glimepiride 2 mg daily Check A1c CAD/CABG Continue statin, aspirin and Plavix Hx of stroke Continue DAPT Dementia-vascular type Patient has arm restraints Alert and awake but confused/poor memory Low-dose Klonopin was added as the patient is moderately anxious and trying to get out of bed For care home facility placement DVT prophylaxis SCDs bilateral lower extremities while in bed, --Full CODE STATUS patient knowledges understanding and agreement with care plan, +30 minutes. Carolina Hernandez . Daily clinical course: 03/22/21: Patient being restless, will place on soft mitten restraint. Continue gentle IV fluid hydration, advance diet as tolerated. May discuss with family about hospice/comfort care. 03/23/21: Patient is not appropriate for hospice. Patient was requesting for SNF placement as she is unable to take care of patient. licensed psychologist manager working on [facility]. Patient very confused due to underlying dementia and wants to get out from the bed. Restraint order placed with mittens for safety. 03/24 patient is awake, alert, confused, poor memory. He is oriented to name only. Cannot tell his age. Denies pain. Denies chest pain or shortness of thelma ath. Chart reviewed. Lab results and Accu-Cheks reviewed. Awaiting care home home placement 03/25 patient has mittens and wrist restraints, alert and offers no specific complaints and not in any acute distress, 03/26 no acute events overnight and patient is awake and alert but moderately confused and with poor memory, waiting for placement Objective - Constitutional Vitals: Vital Signs - 12hr 03/27/21 03/27/21 03/27/21 00:52 00:54 01:09 Temperature 97.8 F Pulse Rate 101 H 99 H 96 H Pulse Rate [ Posterior Bilateral Throughout] Respiratory 18 18 18 Rate Respiratory Rate [Posterior Bilateral Throughout] Blood Pressure 90/53 Blood Pressure 103/55 [Right] O2 Sat by Pulse 92 87 92 Oximetry 03/27/21 03/27/21 03/27/21 01:15 01:56 04:37 Temperature 98.8 F Pulse Rate 90 95 H Pulse Rate [ 98 H Posterior Bilateral Throughout] Respiratory 18 20 Rate Respiratory 18 Rate [Posterior Bilateral Throughout] Blood Pressure 137/75 Blood Pressure [Right] O2 Sat by Pulse 92 86 Oximetry 03/27/21 03/27/21 05:20 08:43 Temperature Pulse Rate 94 H Pulse Rate [ Posterior Bilateral Throughout] Respiratory 18 Rate Respiratory Rate [Posterior Bilateral Throughout] Blood Pressure Blood Pressure [Right] O2 Sat by Pulse 93 97 Oximetry General appearance: Present: no acute distress, other (Pleasantly confused) - EENT Eyes: PERRL, EOM intact - Neck Neck: supple, normal ROM - Respiratory Respiratory effort: normal Respiratory: bilateral: CTA, diminished - Cardiovascular Rhythm: regular Heart Sounds: Present: S1 & S2 Extremities: No edema - Gastrointestinal General gastrointestinal: Present: soft, non-tender Rectal Exam: deferred - Integumentary Integumentary: clear - Neurologic Neurologic: moves all extremities - Labs CBC & Chem 7: 03/27/21 04:51 03/27/21 04:51 Labs: Abnormal lab results 03/26/21 03/26/21 03/26/21 Range/Units 11:34 16:55 21:28 WBC (4.5-11.0) K/mm3 Hgb (11.8-15.2) gm/dl Hct (35.5-45.6) % MCV (84-94) fl MCH (28-32) pg RDW (13.2-15.2) % BUN (9-20) mg/dL Glucose (75-100) mg/dL POC Glucose 344 H 156 H 251 H (70-105) mg/dL Hemoglobin A1c (4-6) % 03/27/21 03/27/21 03/27/21 Range/Units 04:51 04:51 07:34 WBC 17.3 H (4.5-11.0) K/mm3 Hgb 15.3 H (11.8-15.2) gm/dl Hct 45.9 H (35.5-45.6) % MCV 98 H (84-94) fl MCH 33 H (28-32) pg RDW 13.0 L (13.2-15.2) % BUN 38 H (9-20) mg/dL Glucose 319 H (75-100) mg/dL POC Glucose 301 H (70-105) mg/dL Hemoglobin A1c (4-6) % 03/27/21 Range/Units 08:16 WBC (4.5-11.0) K/mm3 Hgb (11.8-15.2) gm/dl Hct (35.5-45.6) % MCV (84-94) fl MCH (28-32) pg RDW (13.2-15.2) % BUN (9-20) mg/dL Glucose (75-100) mg/dL POC Glucose (70-105) mg/dL Hemoglobin A1c 9.2 H (4-6) % HEART Score - HEART Score Troponin: Troponin T < 0.010 ng/mL (0.00-0.029) 03/21/21 13:33
[2021-03-27 16:59] LABS: Bacteria,Urine 1+ /HPF (Negative); Bilirubin,Urine NEG (Negative); Blood,Urine MOD (Negative); Color,Urine Yellow (Yellow); Mucus,Urine FEW /HPF; Urobilinogen,Urine < 2.0 mg/dL (<2.0)
[2021-03-28 06:49] LABS: Hematocrit 44.5 % (35.5-45.6); Hemoglobin 14.9 gm/dl (11.8-15.2); Mean Corpuscular HGB Conc 34 % (32-34); Mean Corpuscular Volume 98 fl (84-94); Platelet Count 284 K/mm3 (140-440); Red Blood Count 4.54 M/mm3 (3.65-5.03); Red Cell Distribution Width 13.3 % (13.2-15.2)
[2021-03-28] MEDS: metFORMIN 500 MG TAB PO SCH ×2 (08:54→18:43)
[2021-03-28] MEDS: GLIMEPIRIDE 2 MG TAB PO SCH (08:54)
[2021-03-28] MEDS: INSULIN REGULAR, HUMAN 100 UNITS/1 ML SUB-Q SCH ×4 (08:55→21:30)
[2021-03-28] MEDS: ASPIRIN EC 81 MG TAB PO SCH (10:28)
[2021-03-28] MEDS: LISINOPRIL 10 MG TAB PO SCH (10:28)
[2021-03-28] MEDS: CLOPIDOGREL 75 MG TAB PO SCH (10:28)
[2021-03-28] MEDS: INSULIN GLARGINE 100 UNITS/ML SUB-Q SCH ×2 (10:32→21:31)
[2021-03-28] MEDS: clonazePAM 0.5 MG TAB PO PRN (12:29)
--- NOTE | 2021-03-28 13:00 | Progress Note ---
Subjective Date of service: 03/28/21 Interval history: Assessment and plan Volume depletion Resolved off IV fluids Stable for discharge to group home facility Acute encephalopathy likely metabolic neuro check, seizure precautions, fall precautions. Patient is alert but confused, poor memory, oriented to name only but follows commands and denies any pain Suspect this is baseline exacerbated by volume depletion Leukocytosis Lab results reviewed Trending down WBC count 17.3 > 13.9 Patient is afebrile and no focus of infection identified UA and chest x-ray results reviewed Hypertension-fair cont. lisinopril 20 mg daily Patient was on lisinopril 40 mg and carvedilol prior to admission Type 2 diabetes Poorly controlled A1c 9.1 Accu-Cheks reviewed Continue Metformin Continue glimepiride 2 mg daily Adjust basal insulin dose CAD/CABG Continue statin, aspirin and Plavix Hx of stroke Continue DAPT Dementia-vascular type Patient has arm restraints Alert and awake but confused/poor memory Low-dose Klonopin was added as the patient is moderately anxious and trying to get out of bed For group home facility placement DVT prophylaxis SCDs bilateral lower extremities while in bed, --Full CODE STATUS patient knowledges understanding and agreement with care plan, +30 minutes. Carolina Hernandez . Daily clinical course: 03/22/21: Patient being restless, will place on soft mitten restraint. Continue gentle IV fluid hydration, advance diet as tolerated. May discuss with family about hospice/comfort care. 03/23/21: Patient is not appropriate for hospice. Patient was requesting for SNF placement as she is unable to take care of patient. wardrobe manager working on placement. Patient very confused due to underlying dementia and wants to get out from the bed. Restraint order placed with mittens for safety. 03/24 patient is awake, alert, confused, poor memory. He is oriented to name only. Cannot tell his age. Denies pain. Denies chest pain or shortness of breath. Chart reviewed. Lab results and Accu-Cheks reviewed. Awaiting group home home placement 03/25 patient has mittens and wrist restraints, alert and offers no specific complaints and not in any acute distress, 03/26 no acute events overnight and patient is awake and alert but moderately confused and with poor memory, waiting for placement 03/28 remains confused but awake and alert, no apparent distress and offers no specific complaints, waiting for placement Objective - Constitutional Vitals: Vital Signs - 12hr 03/28/21 03/28/21 05:19 10:28 Temperature 97.7 F Pulse Rate 84 Respiratory 16 Rate Blood Pressure 142/77 135/68 General appearance: Present: no acute distress - EENT Eyes: PERRL, EOM intact ENT: hearing intact, clear oral mucosa - Neck Neck: supple, normal ROM, no masses or JVD - Respiratory Respiratory effort: normal Respiratory: bilateral: CTA - Cardiovascular Rhythm: regular Heart Sounds: Present: S1 & S2 Extremities: No edema - Gastrointestinal General gastrointestinal: Present: soft, non-tender Rectal Exam: deferred - Genitourinary Male genitourinary: deferred - Integumentary Integumentary: clear - Neurologic Neurologic: moves all extremities - Labs CBC & Chem 7: 03/28/21 05:59 03/27/21 04:51 Labs: Abnormal lab results 03/27/21 03/27/21 03/28/21 Range/Units 16:40 21:07 05:59 WBC 13.9 H (4.5-11.0) K/mm3 MCV 98 H (84-94) fl MCH 33 H (28-32) pg POC Glucose 337 H 381 H (70-105) mg/dL 03/28/21 03/28/21 Range/Units 07:31 12:12 WBC (4.5-11.0) K/mm3 MCV (84-94) fl MCH (28-32) pg POC Glucose 230 H 395 H (70-105) mg/dL HEART Score - HEART Score Troponin: Troponin T < 0.010 ng/mL (0.00-0.029) 03/21/21 13:33
[2021-03-29 08:19] LABS: BUN/Creatinine Ratio 40; Blood Urea Nitrogen 36 mg/dL (9-20); Calcium 9.4 mg/dL (8.4-10.2); Hemolysis Index 1
[2021-03-29] MEDS: INSULIN REGULAR, HUMAN 100 UNITS/1 ML SUB-Q SCH ×2 (08:58→12:35)
[2021-03-29] MEDS: GLIMEPIRIDE 2 MG TAB PO SCH (08:58)
[2021-03-29] MEDS: metFORMIN 500 MG TAB PO SCH (08:58)
[2021-03-29] MEDS: INSULIN GLARGINE 100 UNITS/ML SUB-Q SCH (09:14)
[2021-03-29] MEDS: ASPIRIN EC 81 MG TAB PO SCH (09:25)
[2021-03-29] MEDS: LISINOPRIL 10 MG TAB PO SCH (09:25)
[2021-03-29] MEDS: CLOPIDOGREL 75 MG TAB PO SCH (09:29)
[2021-03-29] MEDS: clonazePAM 0.5 MG TAB PO PRN (10:18)
--- NOTE | 2021-03-29 14:23 | Discharge Summary ---
Providers - Providers Date of Admission: 03/22/21 11:24 Date of discharge: 03/29/21 Attending physician: NORM MILLER 03/22/21 18:07 Consult to Dietitian/Nutrition [CONS] Routine Physician Instructions: Reason For Exam: Reason for Consult: Poor oral intake Primary care physician: CARE ASSISTANT Hospitalization Reason for admission: Altered level of consciousness metabolic encephalopathy/ Condition: Serious Pertinent studies: Chest x-ray: No acute abnormality CT head without contrast; no acute abnormality, cerebral atrophy Hospital course: 86 YO Male with HTN, DM, HLD, CAD S/P Stent Placement and CABG, Debility, 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 Patient has diminished cognition and is unable to provide detailed history. Patient history taken from EMS staff, ED staff, as well as patient who was made available with telephone for interview. Patient was admitted with altered level of consciousness and dementia., Resume appropriate home medications, CT head without contrast did not show any acute abnormalities except for atrophy, chest x-ray no acute abnormalities noted Patient was symptomatically managed, symptoms significantly improved, back to baseline. PT OT and case management evaluated patient, set up SNF/subacute rehab placement Patient is hemodynamically and clinically stable at discharge Discharge diagnosis: --Acute metabolic encephalopathy: Neuro check, seizure precautions, fall precautions. Patient is alert but confused, poor memory, oriented to name only but follows commands and denies any pain Suspect this is baseline exacerbated by volume depletion Leukocytosis Lab results reviewed Trending down WBC count 17.3 > 13.9 Patient is afebrile and no focus of infection identified UA and chest x-ray results reviewed Hypertension-fair cont. lisinopril 20 mg daily Patient was on lisinopril 40 mg and carvedilol prior to admission Type 2 diabetes Poorly controlled A1c 9.1 Accu-Cheks reviewed Continue Metformin Continue glimepiride 2 mg daily Adjust basal insulin dose CAD/CABG Continue statin, aspirin and Plavix Hx of stroke Continue DAPT Dementia-vascular type Patient has arm restraints Alert and awake but confused/poor memory Low-dose Klonopin was added as the patient is moderately anxious and trying to get out of bed For retirement facility placement Acute encephalopathy Leukocytosis Hypertension Type 2 diabetes mellitus Coronary artery disease/CABG History of stroke Dementia Stable at discharge Disposition: [id number]/[id number] SNF W [facility] Final Discharge Diagnosis (Prints w/discharge instructions): Acute encephalopathy. Leukocytosis. Hypertension. Type 2 diabetes mellitus. Coronary artery disease/CABG. History of stroke. Dementia Time spent for discharge: 35 min Core Measure Documentation - Palliative Care Palliative Care/ Comfort Measures: Not Applicable - Core Measures Any of the following diagnoses?: none Exam - Constitutional Vitals: Temp Pulse Resp BP Pulse Ox 98.1 F 80 20 157/77 96 03/29/21 05:03/29/21 09:03/29/21 05:03/29/21 09:03/29/21 08:02 General appearance: Present: no acute distress, well-nourished - EENT Eyes: Present: PERRL, EOM intact - Neck Neck: Present: supple, normal ROM - Respiratory Respiratory effort: normal Respiratory: bilateral: diminished, negative: rales, rhonchi, wheezing - Cardiovascular Rhythm: regular Heart Sounds: Present: S1 & S2 - Extremities Extremities: no ischemia, No edema - Abdominal General gastrointestinal: Present: soft, non-tender, non-distended, normal bowel sounds - Integumentary Integumentary: Present: clear, warm - Musculoskeletal Musculoskeletal: strength equal bilaterally, generalized weakness - Psychiatric Psychiatric: appropriate mood/affect, cooperative - Neurologic Neurologic: moves all extremities Plan Activity: advance as tolerated, fall precautions Diet: other (Mechanical soft) Additional Instructions: If you have worsening symptoms contact MD or go to emergency room. Fall precautions. Aspiration precautions Follow up with: PRIMARY CARE,MD [Primary Care Provider] - 3-5 Days
[2021-03-29 18:16] VITALS: BP 131/80
== END 2021-03-29 19:47 | DRG 640 ==
LOC: ED 10:28 → 3A 15:38 → OBSVTOIN 03-22 11:24
PROVIDERS: ADMIT Internal Medicine; ATTEND Internal Medicine
DX: E86.9 Volume depletion, unspecified (principal); G93.41 Metabolic encephalopathy; Z20.822 Contact with and (suspected) exposure to COVID-19; F01.50 Vascular dementia, unspecified severity, without behavioral disturbance, psychotic disturbance, mood disturbance, and anxiety; I67.2 Cerebral atherosclerosis; I10 Essential (primary) hypertension; E78.5 Hyperlipidemia, unspecified; E11.9 Type 2 diabetes mellitus without complications; D72.829 Elevated white blood cell count, unspecified; I25.10 Atherosclerotic heart disease of native coronary artery without angina pectoris; Z79.4 Long term (current) use of insulin; Z79.82 Long term (current) use of aspirin; Z79.899 Other long term (current) drug therapy; Z79.891 Long term (current) use of opiate analgesic; Z79.01 Long term (current) use of anticoagulants; Z95.1 Presence of aortocoronary bypass graft; Z95.5 Presence of coronary angioplasty implant and graft; Z86.73 Personal history of transient ischemic attack (TIA), and cerebral infarction without residual deficits; Z83.3 Family history of diabetes mellitus; Z82.49 Family history of ischemic heart disease and other diseases of the circulatory system
CPT/HCPCS: 36415; 70450; 71045; 80048; 80053; 80320; 81001; 82140; 82550; 82962; 83036; 84443; 84484; 85025; 85027; 93005; 94640; 96361; 96374; G0378; A9270-GY; G0480; J1815; J2060; J2405; J7030; U0003

== ENCOUNTER 2021-07-20 09:52 | Emergency (ER) | payer MEDICARE ==
[~2021-07-20 09:52] MED LIST: LIDOCAINE 2% UROJECT 10 ML JELLY ONE; SODIUM CHLORIDE 0.9% 1000 ML IV SOLN ONE; SODIUM CHLORIDE 0.9% IRR 1,000 ML BOTTLE IR ONE
--- NOTE | 2021-07-20 10:10 | Emergency Department Report ---
ED Male HPI - General Stated complaint: BLOOD IN URINE Time Seen by Provider: 07/20/21 10:00 Source: patient, EMS Mode of arrival: Ambulatory Limitations: Other (History of dementia) - History of Present Illness Initial comments: CC: blood in urine HPI: THis is an 86 yo male with hx of vascular dementia, GERD, hypertension, diabetes mellitus hyperlipidemia who presents with hematuria and difficulty with urination for one day. Hx limited due to dementia. Patient does not have any other concerns. I have reviewed recent discharge prescriptions and SNF records. Patient takes clopidogrel. Patient presents from [facility]. Patient is full code a ccording to SNF documentation Complaint: other (Urinary retention hematuria) -: Gradual, This morning Severity: moderate Consistency: constant - Related Data Home Medications Medication Instructions Recorded Confirmed Last Taken Clopidogrel [Plavix] 75 mg PO QDAY 06/13/16 06/13/16 Unknown Glimepiride [Amaryl] 1 mg PO QDAY 06/13/16 06/13/16 Unknown lisinopriL [Zestril TAB] 40 mg PO QDAY 06/13/16 06/13/16 Unknown metFORMIN [Glucophage] 500 mg PO BID 06/13/16 06/13/16 Unknown Previous Rx's Medication Instructions Recorded Last Taken Type Aspirin EC [Halfprin EC] 81 mg PO QDAY #30 tablet. 06/14/16 Unknown Rx Atorvastatin Calcium [Lipitor] 20 mg PO QHS #30 tab 06/14/16 Unknown Rx Insulin Glargine [Lantus VIAL] 20 units SUB-Q QHS units 06/14/16 Unknown Rx cephALEXin [Keflex] 500 mg PO TID 5 Days #15 cap 07/20/21 Unknown Rx Allergies Allergy/AdvReac Type Severity Reaction Status Date / Time No Known Allergies Allergy Verified 06/13/16 02:18 ED Review of Systems ROS: Stated complaint: BLOOD IN URINE Other details as noted in HPI Comment: Unobtainable due to pts medical conditions (Limited due to dementia) ED Past Medical Hx - Past Medical History Previous Medical History?: Yes Hx Hypertension: Yes Hx Diabetes: Yes Additional medical history: Coronary artery disease - Surgical History Past Surgical History?: Yes Hx Coronary Stent: Yes (approximately 2013) Hx Open Heart Surgery: Yes (CABG 2007) - Social History Smoking Status: Former Smoker Substance Use Type: None - Medications Home Medications: Home Medications Medication Instructions Recorded Confirmed Last Taken Type Clopidogrel [Plavix] 75 mg PO QDAY 06/13/16 06/13/16 Unknown History Glimepiride [Amaryl] 1 mg PO QDAY 06/13/16 06/13/16 Unknown History lisinopriL [Zestril TAB] 40 mg PO QDAY 06/13/16 06/13/16 Unknown History metFORMIN [Glucophage] 500 mg PO BID 06/13/16 06/13/16 Unknown History Aspirin EC [Halfprin EC] 81 mg PO QDAY #30 tablet.dr 06/14/16 Unknown Rx Atorvastatin Calcium [Lipitor] 20 mg PO QHS #30 tab 06/14/16 Unknown Rx Insulin Glargine [Lantus VIAL] 20 units SUB-Q QHS units 06/14/16 Unknown Rx cephALEXin [Keflex] 500 mg PO TID 5 Days #15 cap 07/20/21 Unknown Rx ED Physical Exam - General Limitations: Other (dementia) General appearance: alert, in no apparent distress - Head Head exam: Present: atraumatic, normocephalic - Eye Eye exam: Present: normal appearance - ENT ENT exam: Present: mucous membranes moist - Neck Neck exam: Present: normal inspection, full ROM - Respiratory Respiratory exam: Present: normal lung sounds bilaterally. Absent: respiratory distress, wheezes, rales, rhonchi - Cardiovascular Cardiovascular Exam: Present: regular rate, normal rhythm, normal heart sounds. Absent: systolic murmur, diastolic murmur, rubs, gallop - GI/Abdominal GI/Abdominal exam: Present: soft, normal bowel sounds. Absent: distended, tenderness, guarding, rebound - Rectal Rectal exam: Present: deferred - exam: Present: circumcision, other (Dried blood externally blood at the uret hral meatus). Absent: testicular tenderness, scrotal swelling, vertical testicular lie External exam: Present: normal external exam. Absent: erythema, swelling, lesions, lacerations, ecchymosis - Extremities Exam Extremities exam: Present: normal inspection - Neurological Exam Neurological exam: Present: alert, other (Oriented to name only) - Psychiatric Psychiatric exam: Present: normal affect, normal mood, other (Pleasant) - Skin Skin exam: Present: warm, dry, intact, normal color. Absent: rash ED Course Vital Signs 07/20/21 07/20/2121 10:15 10:20 10:32 Temperature 97.8 F Pulse Rate 108 H Respiratory 18 21 Rate Blood Pressure Blood Pressure 127/57 [Right] O2 Sat by Pulse 99 96 90 Oximetry 07/20/21 07/20/21 07/20/21 10:45 12:35 12:45 Temperature Pulse Rate 112 H 98 H Respiratory 17 18 Rate Blood Pressure 123/73 123/73 180/110 Blood Pressure [Right] O2 Sat by Pulse 94 90 87 Oximetry 07/20/21 07/20/21 07/20/21 13:01 13:16 15:07 Temperature Pulse Rate 93 H Respiratory 19 Rate Blood Pressure 180/110 123/73 96/67 Blood Pressure [Right] O2 Sat by Pulse 92 91 Oximetry 07/20/21 07/20/21 07/20/21 15:16 15:33 15:45 Temperature Pulse Rate 86 84 89 Respiratory 14 16 17 Rate Blood Pressure 123/73 Blood Pressure [Right] O2 Sat by Pulse 98 Oximetry 07/20/21 16:18 Temperature Pulse Rate 96 H Respiratory Rate Blood Pressure Blood Pressure 129/91 [Right] O2 Sat by Pulse Oximetry - Reevaluation(s) Reevaluation #1: 07/20/21 12:26 Bladder scan volume 786 mL ED Medical Decision Making - Lab Data Result diagrams: 07/20/21 16:10 07/20/21 10:18 Laboratory Results - last 24 hr 07/20/21 07/20/21 07/20/21 10:18 10:18 13:10 WBC 14.6 H RBC 4.32 Hgb 13.3 Hct 41.5 MCV 96 H MCH 31 MCHC 32 RDW 16.0 H Plt Count 330 Add Manual Diff Complete Total Counted 100 Seg Neutrophils % Microphone Operator Seg Neuts % (Manual) 94.0 H Lymphocytes % (Manual) 3.0 L Monocytes % (Manual) 2.0 Eosinophils % (Manual) 1.0 Nucleated RBC % Not Reportable Seg Neutrophils # Man 13.7 H Band Neutrophils # 0.0 Lymphocytes # (Manual) 0.4 L Abs React Lymphs (Man) 0.0 Monocytes # (Manual) 0.3 Eosinophils # (Manual) 0.1 Basophils # (Manual) 0.0 Metamyelocytes # 0.0 Myelocytes # 0.0 Promyelocytes # 0.0 Blast Cells # 0.0 WBC Morphology Not Reportable Hypersegmented Neuts Not Reportable Hyposegmented Neuts Not Reportable Hypogranular Neuts Not Reportable Smudge Cells Not Reportable Toxic Granulation Not Reportable Toxic Vacuolation Not Reportable Dohle Bodies Not Reportable Pelger-Huet Anomaly Not Reportable Michelle Rods Not Reportable Platelet Estimate Consistent w auto Clumped Platelets Not Reportable Plt Clumps, EDTA Not Reportable Large Platelets Not Reportable Giant Platelets Not Reportable Platelet Satelliting Not Reportable Plt Morphology Comment Not Reportable RBC Morphology Normal Dimorphic RBCs Not Reportable Polychromasia Not Reportable Hypochromasia Not Reportable Poikilocytosis Not Reportable Anisocytosis Not Reportable Microcytosis Not Reportable Macrocytosis Not Reportable Spherocytes Not Reportable Pappenheimer Bodies Not Reportable Sickle Cells Not Reportable Target Cells Not Reportable Tear Drop Cells Not Reportable Ovalocytes Not Reportable Helmet Cells Not Reportable Kwok-Loughman Bodies Not Reportable [place] Rings Not Reportable Herman Cells Not Reportable Bite Cells Not Reportable Crenated Cell Not Reportable Elliptocytes Not Reportable Acanthocytes (Spur) Not Reportable Rouleaux Not Reportable Hemoglobin C Crystals Not Reportable Schistocytes Not Reportable Malaria parasites Not Reportable Sridhar Bodies Not Reportable Hem Pathologist Commnt No Sodium 138 Potassium 3.9 Chloride 99.0 Carbon Dioxide 20 L Anion Gap 23 BUN 21 H Creatinine 0.9 Estimated GFR > 60 BUN/Creatinine Ratio 23 Glucose 374 H Calcium 9.5 Urine Color Red Urine Turbidity Turbid Urine pH TNR Ur Specific [place] TNR Urine Protein TNR Urine Glucose (UA) TNR Urine Ketones TNR Urine Blood TNR Urine Nitrite TNR Urine Bilirubin TNR Urine Ictotest Not Reportable Urine Urobilinogen TNR Ur Leukocyte Esterase TNR Urine WBC (Auto) > 182.0 H Urine RBC (Auto) > 182.0 07/20/21 16:10 WBC RBC Hgb 12.6 Hct 38.2 MCV MCH MCHC RDW Plt Count Add Manual Diff Total Counted Seg Neutrophils % Seg Neuts % (Manual) Lymphocytes % (Manual) Monocytes % (Manual) Eosinophils % (Manual) Nucleated RBC % Seg Neutrophils # Man Band Neutrophils # Lymphocytes # (Manual) Abs React Lymphs (Man) Monocytes # (Manual) Eosinophils # (Manual) Basophils # (Manual) Metamyelocytes # Myelocytes # Promyelocytes # Blast Cells # WBC Morphology Hypersegmented Neuts Hyposegmented Neuts Hypogranular Neuts Smudge Cells Toxic Granulation Toxic Vacuolation Dohle Bodies Pelger-Huet Anomaly Michelle Rods Platelet Estimate Clumped Platelets Plt Clumps, EDTA Large Platelets Giant Platelets Platelet Satelliting Plt Morphology Comment RBC Morphology Dimorphic RBCs Polychromasia Hypochromasia Poikilocytosis Anisocytosis Microcytosis Macrocytosis Spherocytes Pappenheimer Bodies Sickle Cells Target Cells Tear Drop Cells Ovalocytes Helmet Cells Kwok-Loughman Bodies [place] Rings Seferino Cells Bite Cells Crenated Cell Elliptocytes Acanthocytes (Spur) Rouleaux Hemoglobin C Crystals Schistocytes Malaria parasites Sridhar Bodies Hem Pathologist Commnt Sodium Potassium Chloride Carbon Dioxide Anion Gap BUN Creatinine Estimated GFR BUN/Creatinine Ratio Glucose Calcium Urine Color Urine Turbidity Urine pH Ur Specific [place] Urine Protein Urine Glucose (UA) Urine Ketones Urine Blood Urine Nitrite Urine Bilirubin Urine Ictotest Urine Urobilinogen Ur Leukocyte Esterase Urine WBC (Auto) Urine RBC (Auto) - Radiology Data Radiology results: report reviewed Patient Name: SHRUTHI KIM Gender: Male Date of : 1935 Referring Provider: JOSE HARVEY Organization: [facility] Accession Number: [id number] Requested Date: July 20, 2021 10:46 Report Status: Final Requested Procedure: 1 Procedure Description: CT abdomen pelvis wo/w con Modality: CT Findings Reporting MD: Simon Flaherty Dictation Time: July 20, 2021 10:45 Destination Coordinator: Not available Art Psychotherapist Or Therapist Date: CT abdomen pelvis wo/w con INDICATION / CLINICAL INFORMATION: hematuria OMNI 300 100 ML. TECHNIQUE: Volumetric CT data acquisition of the abdomen and pelvis was performed prior to and following administration of 100 cc of Omnipaque [address] scans at this location are performed using CT dose reduction for ALARA by means of automated exposure control. COMPARISON: None available FINDINGS: LOWER CHEST: Unremarkable LIVER: Unremarkable GALLBLADDER/BILIARY TREE: Cholelithiasis. No evidence of cholecystitis. No biliary dilatation. PANCREAS: Unremarkable SPLEEN: Unremarkable ADRENALS: Unremarkable Kidneys: Bilateral extrarenal pelves noted. No urolithiasis or hydronephrosis. No solid renal mass. URINARY BLADDER: 6.2 x 5.1 x 3.6 cm masslike soft tissue in the posterior bladder. No definite enhancement. Bladder is minimally distended. No other significant abnormality. REPRODUCTIVE ORGANS: Radiotherapy seeds in the prostate gland, which appears mildly enlarged. STOMACH / SMALL BOWEL: Stomach and small bowel are normal in caliber. No evidence of bowel inflammation. COLON: Colonic diverticulosis without evidence of diverticulitis. The appendix is normal in caliber. LYMPH NODES: No significant adenopathy. VASCULATURE: Severe atherosclerotic calcification without acute abnormality. OTHER: No free air, free fluid, or focal fluid collection is identified. SKELETAL SYSTEM: Mild right convex curvature centered at the upper lumbar spine. Moderate multilevel thoracolumbar spondylosis. No acute osseous abnormality. Osseous lesions identified. IMPRESSION: 1. 6.2 cm masslike soft tissue in the posterior bladder. This could reflect a large amount of hemorrhagic debris; however, malignancy is the diagnosis of exclusion. 2. Other chronic and incidental findings as above. Signer Name: Simon Flaherty MD Signed: 07/20/2021 10:45 AM Workstation Name: [id number] - Medical Decision Making This is an 86 yo male with presents with hematuria and urinary retention for one day. Gross hematuria with blood clots observed in urinal. CBC chemistry within normal limits. Normal kidney function. Normal H&H. Serial H&H's obtain stable. No evidence of severe hemorrhage. I assisted nursing staff with manual irrigation in continuous irrigation. Dr. Hernandez recommended outpatient follow-up if urinary retention resolved with large Jimenez catheter. Patient currently has 20 Urdu three-way catheter in place with spontaneous drainage. Repeat bladder scan 126 mL urine volume. I asked nurse to give report directly to staff at [facility]. Clopidogrel should be discontinued. We'll give prophylactic antibiotics for presumed cystitis. CT scan reveals bladder mass versus hemorrhagic debris. Discharged back to skilled nurse facility. Critical Care Time: Yes Critical care time in (mins) excluding proc time.: 40 Critical care attestation.: If time is entered above; I have spent that time in minutes in the direct care of this critically ill patient, excluding procedure time. 40 minutes of critical care time excluding procedures were used in the care of the patient. I came immediately to the bedside upon patient's arrival. I obtained history from EMS at the bedside. I discussed treatment plan with the nursing team members. I reviewed electronic record. I was at the bedside assisting with manual and continuous irrigation. Patient required multiple interventions and reassessments. ED Disposition Clinical Impression: Bladder mass, Gross hematuria, Urinary retention, Cystitis Disposition: [facility] Is pt being admited?: No Does the pt Need Aspirin: No Condition: Stable Additional Instructions: Please stop clopidogrel, Plavix therapy. Please manually irrigate catheter if urine output ceases. Prescriptions: cephALEXin [Keflex] 500 mg PO TID 5 Days #15 cap Referrals: MORALES HERNANDEZ MD [Staff Physician] - 3-5 Days
[2021-07-20 10:38] LABS: Hematocrit 41.5 % (35.5-45.6); Hemoglobin 13.3 gm/dl (11.8-15.2); Mean Corpuscular HGB Conc 32 % (32-34); Mean Corpuscular Volume 96 fl (84-94); Platelet Count 330 K/mm3 (140-440); Red Blood Count 4.32 M/mm3 (3.65-5.03)
[2021-07-20 10:58] LABS: BUN/Creatinine Ratio 23; Blood Urea Nitrogen 21 mg/dL (9-20); Calcium 9.5 mg/dL (8.4-10.2); Hemolysis Index 3
[2021-07-20 11:49] LABS: Total Cells Counted 100
--- NOTE | 2021-07-20 11:49 | Cat Scan Report ---
CT abdomen pelvis wo/w con INDICATION / CLINICAL INFORMATION: hematuria OMNI 300 100 ML. TECHNIQUE: Volumetric CT data acquisition of the abdomen and pelvis was performed prior to and follow ing administration of 100 cc of Omnipaque [address] scans at this location are perform ed using CT dose reduction for ALARA by means of automated exposure control. COMPARISON: None available FINDINGS: LOWER CHEST: Unremarkable LIVER: Unremarkable GALLBLADDER/BILIARY TREE: Cholelithiasis. No evidence of cholecystitis. No biliary dilatation. PANCREAS: Unremarkable SPLEEN: Unremarkable ADRENALS: Unremarkable Kidneys: Bilateral extrarenal pelves noted. No urolithiasis or hydronephrosis. No solid renal mass. URINARY BLADDER: 6.2 x 5.1 x 3.6 cm masslike soft tissue in the posterior bladder. No definite enhanc ement. Bladder is minimally distended. No other significant abnormality. REPRODUCTIVE ORGANS: Radiotherapy seeds in the prostate gland, which appears mildly enlarged. STOMACH / SMALL BOWEL: Stomach and small bowel are normal in caliber. No evidence of bowel inflammati on. COLON: Colonic diverticulosis without evidence of diverticulitis. The appendix is normal in caliber. LYMPH NODES: No significant adenopathy. VASCULATURE: Severe atherosclerotic calcification without acute abnormality. OTHER: No free air, free fluid, or focal fluid collection is identified. SKELETAL SYSTEM: Mild right convex curvature centered at the upper lumbar spine. Moderate multilevel thoracolumbar spondylosis. No acute osseous abnormality. Osseous lesions identified. IMPRESSION: 1. 6.2 cm masslike soft tissue in the posterior bladder. This could reflect a large amount of hemorrh agic debris; however, malignancy is the diagnosis of exclusion. 2. Other chronic and incidental findings as above. Signer Name: Simon Flaherty MD Signed: 07/20/2021 11:45 AM Workstation Name: [id number]
[2021-07-20 11:50] LABS: Platelet Estimate Consistent w Auto; RBC Morphology Normal
[2021-07-20] MEDS ORDERED: SODIUM CHLORIDE 0.9% 1000 ML 1,000 ML IV ONE ×2 (12:48→14:46)
[2021-07-20 13:30] LABS: Color,Urine RED (Yellow); RBC,Urine > 182.0 /HPF (0.0-6.0); WBC,Urine > 182.0 /HPF (0.0-6.0)
[2021-07-20 13:31] LABS: Bilirubin,Urine TNR (Negative); Blood,Urine TNR (Negative); PH,Urine TNR (5.0-7.0); Protein,Urine TNR mg/dL (Negative); Urobilinogen,Urine TNR mg/dL (<2.0)
[2021-07-20] MEDS ORDERED: SODIUM CHLORIDE 0.9% 1000 ML 2,000 ML IV ONE (13:35)
[2021-07-20] MEDS ORDERED: SODIUM CHLORIDE 0.9% IRRIG SOLN 2000 ML IR SCH (14:00)
[2021-07-20] MEDS ORDERED: SODIUM CHLORIDE 0.9% IRRIG SOLN 2000 ML IR ONE (14:00)
[2021-07-20 16:36] LABS: Hematocrit 38.2 % (35.5-45.6); Hemoglobin 12.6 gm/dl (11.8-15.2)
[2021-07-20] MEDS ORDERED: HALOPERIDOL LACTATE 5 MG/1 ML INJ IM ONE (17:06)
[2021-07-20] MEDS ORDERED: cefTRIAXone/NS 2 GM/100 ML 2 GM/100 ML BAG IV ONE (17:17)
[2021-07-20] MEDS ORDERED: LORazepam 2 MG/ML VIAL IV ONE (19:06)
[2021-07-20] MEDS ORDERED: diphenhydrAMINE 50 MG/ML VIAL IV ONE (19:06)
[2021-07-20 22:02] VITALS: BP 124/77
== END 2021-07-20 22:02 ==
LOC: ED 09:52
DX: N30.91 Cystitis, unspecified with hematuria (principal); R31.0 Gross hematuria; N32.89 Other specified disorders of bladder; R33.9 Retention of urine, unspecified; I10 Essential (primary) hypertension; E11.9 Type 2 diabetes mellitus without complications; I25.10 Atherosclerotic heart disease of native coronary artery without angina pectoris; Z87.891 Personal history of nicotine dependence; Z95.1 Presence of aortocoronary bypass graft; Z79.899 Other long term (current) drug therapy
CPT/HCPCS: 36415; 51700; 74178; 80048; 81001; 85007; 85014; 85018; 85025; 96361; 96365; 96372; 96375; 99284; A4217; J0696; J1200; J1630; J2060; J7030; J7120; Q9967